=== PATIENT | female | born 1975 | race Caucasian/White ===

== ENCOUNTER → 2016-02-21 | Day surgery (SDC) | payer BC ==
[2016-02-13 10:05] VITALS: Ht 157.5 cm; Wt 54.5 kg
[~2016-02-21] VITALS: Ht 157.5 cm; Wt 54.5 kg
[~2016-02-21] MED LIST: ATROPINE SULFATE 0.1 MG/ML 5ML SYR IV PRN; BUPR-79 PO; DEXAMETHASONE SOD INJ 4 MG/ML VIAL ONE; EpHEDrine SULFATE INJ 50 MG/ML AMP IV PRN; FENTANYL CITRATE INJ 50 MCG/1 ML 2 ML VIAL IV PRN; FENTANYL CITRATE INJ 50 MCG/1 ML 2 ML VIAL ONE; LACTATED RINGER'S 1000ML 1,000 ML IV SCH; LIDOCAINE HCL 2% 2 ML VIAL (20MG/ML) ONE; MIDAZOLAM HCL 1 MG/ML 2ML VIAL ONE; MULT-506 PO; ONDANSETRON INJ 2 MG/ML 2 ML VIAL IV PRN; ONDANSETRON INJ 2 MG/ML 2 ML VIAL ONE; OXYC-57 PO; OXYCODONE/ACETAMINOPHEN 5-325 TAB PO PRN; PROMETHAZINE HCL INJ 12.5 MG in SODIUM CHLORIDE 0.9% 50ML 50 ML IV PRN; PROMETHAZINE HCL INJ 25 MG in SODIUM CHLORIDE 0.9% 50ML 50 ML IV PRN; PROPOFOL IV EMULSION 10 MG/ML 20 ML VIAL IV ONE; SODIUM CHLORIDE 0.9% 1000ML 1,000 ML IV SCH
--- NOTE | 2016-02-21 09:27 | History & Physical Bridge - [place] ---
H&P Re-Evaluation Bridge Note: I have examined the patient, reviewed the History & Physical and in the interval since the performance of the History & Physical I have noted the following changes of clinical significance: No changes noted
--- NOTE | 2016-02-21 10:18 | [facility] Post Operative Brief Note ---
Immediate Operative Summary Operative Date Feb 21, 2016. Pre-Operative Diagnosis Menorrhagia, Pelvic Pain Post-Operative Diagnosis Same Procedure(s) Performed Dilatation And Curettage, Hysteroscopy, Endometrial Ablation with Novasure Surgeon Dr. Lock Cattle Manager Surgeon(s) None Estimated Blood Loss 20 mL Findings narrow Cx Specimens A. Endometrial Curettings Drains None Anesthesia General Complication(s) None Disposition Recovery Room / PACU
--- NOTE | 2016-02-21 10:19 | Discharge Instructions ---
Discharge Instructions Admission Reason for Admission: Menorrhagia, Pelvic Pain Discharge Discharge Diagnosis / Problem: menorrhagia Discharge Goals Goal(s): Routine recovery after surgery Activity Recommendations Activity Limitations: per Instructions/Follow-up section . Instructions / Follow-Up Instructions / Follow-Up ACTIVITY RECOMMENDATIONS: * Avoid tampons, douching, hot tubs, pools, and intercourse until bleeding has stopped. * May shower as usual. * No strenuous activity for 24-48 hours. After 24-48 hours, you may do anything you feel like doing (driving and sports are okay). SPECIAL CARE INSTRUCTIONS: Special Diet: * Mild nausea may occur in the immediate post-operative period. * Take clear liquids such as tea, cola or bouillon until all nausea has subsided; you may then resume your normal diet. Special Care: * Light bleeding and vaginal spotting can last from a few days to 3-4 weeks. Call your doctor if bleeding becomes heavier than the heaviest part of your period. * Check your temperature twice a day for one week. If it goes above 100.4 degrees Fahrenheit (38.0 Celsius), notify your doctor. * Call your doctor's office for an appointment for 6 weeks after your surgery. FOLLOW-UP VISIT: Call your doctor's office for an appointment for 6 weeks after your surgery. Current Hospital Diet Patient's current hospital diet: Discharge Diet Recommended Diet: Regular Diet Procedures Procedures Performed: Dilatation And Curettage, Hysteroscopy, Endometrial Ablation with Novasure Pending Studies Studies pending at discharge: no Medical Emergencies . Who to Call and When: Medical Emergencies: If at any time you feel your situation is an emergency, please call 911 immediately. . Non-Emergent Contact Non-Emergency issues call your: Primary Care Provider . . "Provider Documentation" section prepared by Angel Lock. VTE Core Measure Inpt VTE Proph given/why not?: Treatment not indicated
[2016-02-21 11:00] VITALS: TEMP 36.3
--- NOTE | 2016-02-21 11:15 | Anesthesia Progress Nt - [facility] ---
Anesthesia Post Op Note Date & Time Feb 21, 2016 at 11:15 Vital Signs Pain Intensity: 2 Vital Signs Past 12 Hours Date Time Temp Pulse Resp B/P Pulse Ox O2 Delivery O2 Flow Rate FiO2 02/21/16 11:00 36.3 68 16 109/73 98 Room Air 02/21/16 10:55 59 13 02/21/16 10:55 60 13 100 02/21/16 10:54 60 11 100 02/21/16 10:54 59 11 02/21/16 10:53 97/69 02/21/16 10:53 36.6 60 12 102/69 100 Room Air 02/21/16 10:49 63 17 02/21/16 10:49 62 17 100 02/21/16 10:48 102/69 02/21/16 10:44 70 14 100 02/21/16 10:44 67 14 02/21/16 10:43 103/70 02/21/16 10:39 68 18 100 02/21/16 10:39 68 18 02/21/16 10:38 101/66 02/21/16 10:34 71 18 02/21/16 10:34 71 18 100 02/21/16 10:33 65 15 100 02/21/16 10:33 64 15 02/21/16 10:28 62 12 104/64 100 02/21/16 10:28 36.2 70 18 98/68 100 Diffusion Mask 6 02/21/16 10:28 65 12 02/21/16 08:59 36.5 68 16 110/76 100 Room Air Notes Mental Status: alert / awake / arousable, participated in evaluation Pt Amnestic to Procedure: Yes Nausea / Vomiting: adequately controlled Pain: adequately controlled Airway Patency, RR, SpO2: stable & adequate BP & HR: stable & adequate Hydration State: stable & adequate Anesthetic Complications: no major complications apparent
[2016-02-21 11:25] VITALS: BP 107/74; PULSE 73; O2SAT 98
--- NOTE | 2016-02-21 12:01 | OPERATIVE REPORT ---
DATE OF OPERATION: 02/21/2016 PREOPERATIVE DIAGNOSIS: Menorrhagia. POSTOPERATIVE DIAGNOSIS: Menorrhagia. PROCEDURES: D\T\C, hysteroscopy, endometrial ablation with NovaSure. SURGEON: Dr. Lock. SHANK RANDER: None. ESTIMATED BLOOD LOSS: 20 mL. FINDINGS: Narrow cervix. SPECIMENS: Endometrial curettings. DRAINS: None. ANESTHETIC: General. COMPLICATIONS: None. DISPOSITION: Recovery room. Belle was given a general anesthetic, prepped and draped in dorsal lithotomy position in [facility] cane stirrups. Bladder drained. Uterus examined and found to be axial in position, nonenlarged. Weighted speculum placed in the vagina. Single tooth tenaculum on anterior lip of the cervix. Cervix then dilated. Initially I had some resistance on dilatation but what we found was the external os was open enough to allow a 5 mm scope and I was able to visualize that the os actually took a sharp turn anteriorly. Using careful dilatation, starting at #13 dilator and progressing to a #29 dilator, I was able to dilate the cervix. Again, the direction of the uterus actually had a significant anteflexion at this stage but I was able to visualize the cavity. Both tubal ostia were visualized. There was no sign of perforation and no abnormal pathology seen, lining somewhat thickened. D\T\C performed and sharp curettage to remove tissue. Measurements were performed. The actual fundal length was 4 cm and the width 4.2 cm. We performed the cavity integrity test with carbon dioxide and then this was passed successfully in the first attempt and then after this, we performed the ablation, ablating for a total of 2 minutes time. At the end of the procedure, the device was removed and at this stage, we then reinspected with a hysteroscope. Cavity was well ablated. There was no sign of perforation. Pictures taken for documentation. Sponge and instrument counts correct. The patient sent to recovery room in stable condition. I attest to the content of the Intraoperative Record and any orders documented therein. Any exceptio ns are noted below.
== END | disposition home or self-care (01) ==
LOC: X.SURG 08:46
PROVIDERS: ATTEND Obstetrics & Gynecology
DX: N92.0 Excessive and frequent menstruation with regular cycle (principal); R10.2 Pelvic and perineal pain; F41.9 Anxiety disorder, unspecified; F32.9 Major depressive disorder, single episode, unspecified; K21.9 Gastro-esophageal reflux disease without esophagitis

== ENCOUNTER → 2016-05-14 | Outpatient (CLI) | payer BC, OTHER ==
[~2016-05-14] MED LIST changes: -ATROPINE SULFATE 0.1 MG/ML 5ML SYR IV PRN; -DEXAMETHASONE SOD INJ 4 MG/ML VIAL ONE; -EpHEDrine SULFATE INJ 50 MG/ML AMP IV PRN; -FENTANYL CITRATE INJ 50 MCG/1 ML 2 ML VIAL IV PRN; -FENTANYL CITRATE INJ 50 MCG/1 ML 2 ML VIAL ONE; -LACTATED RINGER'S 1000ML 1,000 ML IV SCH; -LIDOCAINE HCL 2% 2 ML VIAL (20MG/ML) ONE; -MIDAZOLAM HCL 1 MG/ML 2ML VIAL ONE; -ONDANSETRON INJ 2 MG/ML 2 ML VIAL IV PRN; -ONDANSETRON INJ 2 MG/ML 2 ML VIAL ONE; -OXYCODONE/ACETAMINOPHEN 5-325 TAB PO PRN; -PROMETHAZINE HCL INJ 12.5 MG in SODIUM CHLORIDE 0.9% 50ML 50 ML IV PRN; -PROMETHAZINE HCL INJ 25 MG in SODIUM CHLORIDE 0.9% 50ML 50 ML IV PRN; -PROPOFOL IV EMULSION 10 MG/ML 20 ML VIAL IV ONE; -SODIUM CHLORIDE 0.9% 1000ML 1,000 ML IV SCH
== END | disposition home or self-care (01) ==
LOC: C.LABMFLN 07:55
PROVIDERS: ATTEND Family Medicine
DX: R31.9 Hematuria, unspecified (principal)

== ENCOUNTER 2017-09-11 09:17 | Observation (INO) | payer BC ==
[2017-09-02 14:29] VITALS: BMI 24.0
[~2017-09-11] VITALS: Ht 154.9 cm; Wt 59.1 kg
[2017-09-11] VITALS (8 sets, daily range): BP systolic 100–132; BP diastolic 64–84; PULSE 67–81; TEMP 36.6–37.1; O2SAT 99–100; Ht 154.9 cm; Wt 59.1 kg
[~2017-09-11 09:17] MED LIST changes: +ATROPINE SULFATE 0.1 MG/ML 5ML SYR IV PRN; +CEFAZOLIN 2000MG IV PUSH 15 ML IV SCH; +EpHEDrine SULFATE INJ 50 MG/ML AMP IV PRN; +FENTANYL CITRATE INJ 50 MCG/1 ML 2 ML VIAL IV PRN; +FLUMAZENIL 0.1 MG/1 ML 10 ML VIAL IV PRN; +HYDROmorphone INJ 2 MG/ML SYR/VIAL IV PRN; +LABETALOL HCL IV 5 MG/ML 20ML IV PRN; +LACTATED RINGER'S 1000ML 1,000 ML IV SCH; +MEPERIDINE HCL 25 MG/ML CARP IV PRN; +NALOXONE HCL 0.4 MG/1 ML VIAL/CARP IV PRN; +ONDANSETRON INJ 2 MG/ML 2 ML VIAL IV PRN; -OXYC-57 PO; +PHENYLEPHRINE 100MCG/ML 5ML SYR IV PRN
[2017-09-11] MEDS ORDERED: METHYLENE BLUE 0.5% 10 ML VIAL ONE (12:02)
[2017-09-11] MEDS ORDERED: BUPIVACAINE 0.5 % 5 MG/1 ML PF 10ML VIAL ONE (12:02)
[2017-09-11] MEDS ORDERED: FENTANYL CITRATE INJ 50 MCG/1 ML 2 ML VIAL ONE (12:04)
[2017-09-11] MEDS ORDERED: MIDAZOLAM HCL 1 MG/ML 2ML VIAL ONE (12:04)
[2017-09-11] MEDS ORDERED: LIDOCAINE 2% JELLY 5 ML TUBE ONE (12:08)
[2017-09-11] MEDS ORDERED: ACETAMINOPHEN 1000 MG/100 ML IV IV ONE (12:08)
[2017-09-11] MEDS ORDERED: DiphenhydrAMINE HCL 50 MG/ML VIAL ONE (12:56)
[2017-09-11] MEDS ORDERED: DEXAMETHASONE SOD INJ 4 MG/ML VIAL ONE (12:56)
[2017-09-11] MEDS ORDERED: ROCURONIUM BROMIDE 10 MG/ML 5 ML VIAL ONE (12:56)
[2017-09-11] MEDS ORDERED: ONDANSETRON INJ 2 MG/ML 2 ML VIAL ONE (12:56)
[2017-09-11] MEDS ORDERED: LIDOCAINE HCL 2% 2 ML VIAL (20MG/ML) ONE (12:56)
[2017-09-11] MEDS ORDERED: GLYCOPYRROLATE INJ 0.2 MG/ML VIAL ONE (12:56)
[2017-09-11] MEDS ORDERED: NEOSTIGMINE METHYLSULFATE 5 MG/5 ML SYR ONE (12:56)
[2017-09-11] MEDS ORDERED: PROPOFOL IV EMULSION 10 MG/ML 20 ML VIAL ONE (12:57)
[2017-09-11] MEDS ORDERED: TISSEEL FIBRIN SEALANT 4ML TOP ONE (13:59)
[2017-09-11] MEDS ORDERED: LACTATED RINGER'S 1000ML 1,000 ML IV SCH (14:16)
--- NOTE | 2017-09-11 14:19 | [facility] Post Operative Brief Note ---
Immediate Operative Summary Operative Date Sep 11, 2017. Pre-Operative Diagnosis Menorrhagia Pelvic pain Post-Operative Diagnosis same Procedure(s) Performed TLH, bilat salpingectomy, cystoscopy Surgeon Dr. Shane Lock Casting Supervisor Surgeon(s) None Estimated Blood Loss 10ml Findings Consistent with Post-Op Diagnosis Specimens A: Cervix, Uterus, and Fallopian tubes Drains Ellis Anesthesia Type General Complication(s) none Disposition Accompanied Pt To Recover: no Disposition: Recovery Room / PACU
[2017-09-11] MEDS ORDERED: OXYC-57 PO (14:20)
--- NOTE | 2017-09-11 14:20 | Discharge Instructions ---
Discharge Instructions Date of Service Sep 11, 2017. Admission Reason for Admission: Menorrhagia, Pelvic Pain Discharge Discharge Diagnosis / Problem: pelvic pain Discharge Goals Goal(s): Routine recovery after surgery Activity Recommendations Activity Limitations: per Instructions/Follow-up section . Instructions / Follow-Up Instructions / Follow-Up POST OPERATIVE: BOWEL FUNCTION/MEDICATIONS: 1. Constipation pain and discomfort are the most common complaints 5-7 days after surgery. Points 2-6 address the things that can help. 2. Chewing gum can help stimulate the gut and help improve digestion and motility. 3. Milk of Magnesia 1-2 times per day until return of bowel function. 4. Colace is a stool softener that helps. Taking this 2-3 times per day until bowel function returns to normal is highly recommended. 5. Dulcolax is a laxative that may be used if several days have passed without a bowel movement. Alternatively Miralax may be used daily instead. 6. Drink plenty of fluids as this will also reduce constipation. 7. Narcotic pain medications will be prescribed by your physician. They are safe to use and we encourage you to use them. If you are not allergic, ibuprofen will also be prescribed. Many patients will be able to transition off of the narcotic medications to ibuprofen by postoperative day 3. ACTIVITY RECOMMENDATIONS: 1. Get plenty of rest and listen to your body. If you are tired, take a nap. 2. You may shower, but do not take a tub bath until you see your doctor at the 2 week post operative visit. 3. Absolutely NO intercourse and nothing in the vagina until you are examined by your doctor at the 6 week visit. At that visit it will be determined when such activities can be resumed. This can range from 6-12 weeks after your surgery depending on healing time. 4. The main physical activity in the first week should be walking. By the second week you can slowly increase activity. There are no limits on walking up and down stairs. 5. Do not lift more than 5-10 lbs for 4 weeks. Remember the "one-handed rule", i.e. if you can lift something with only one hand it's likely okay. 6. Minimize bag tester like vacuuming and exercising for 4 weeks. "Overdoing it" can lead to incisions not healing, pain and vaginal bleeding , so again, listen to your body. 7. Driving can be resumed when you feel able. Do not drive within 24 hours of taking a narcotic medication. EXPECTATIONS: 1. Vaginal spotting, bleeding and discharge are common after surgery. There may even be an odor to the discharge which is often related to sutures used in the vagina. If you experience heavy vaginal bleeding, call the office number day or night [phone]. 2. Bladder discomfort is common after surgery from the catheter. This usually resolves in 1-2 weeks. 3. By the end of the 3rd or 4th week you should be feeling much better. It may take up to 6 weeks for your energy levels to return to normal. 4. Narcotic medications have side effects such as: dizziness, headache, nausea and/or vomiting. If you suspect your pain medication is causing problems, call our office and we may be able to prescribe an alternate medication. 5. The skin incisions are often covered with a liquid bandage. This will gradually peel off over time. CALL THE OFFICE IF YOU HAVE ANY OF THE FOLLOWIN. Temperature of 101 degrees or higher. 2. Severe abdominal or pelvic pain not relieved by pain medication. 3. Persistent nausea or vomiting. 4. Increased pain with urination or difficulty urinating. 5. Bright red bleeding that soaks more than 1 pad per hour. CONTACT PHONE NUMBERS: Main Office: [phone] Surgical Nurse: [phone] extension [phone] Avoid all tobacco products. If you need help to stop smoking, call [place]'s FREE QUITLINE at . This is a free call. Current Hospital Diet Patient's current hospital diet: Discharge Diet Recommended Diet: Regular Diet Procedures Procedures Performed: TLH, bilat salpingectomy, cystoscopy Pending Studies Studies pending at discharge: no Medical Emergencies . Who to Call and When: Medical Emergencies: If at any time you feel your situation is an emergency, please call 911 immediately. . Non-Emergent Contact Non-Emergency issues call your: Safety Teacher . . "Provider Documentation" section prepared by Angel Lock. .
[2017-09-11] MEDS ORDERED: OXYCODONE/ACETAMINOPHEN 5-325 TAB PO PRN ×2 (14:30)
[2017-09-11] MEDS ORDERED: ZOLPIDEM TARTRATE 5 MG TAB PO PRN (14:30)
[2017-09-11] MEDS ORDERED: PROMETHAZINE HCL INJ 25 MG in SODIUM CHLORIDE 0.9% 50ML 50 ML IV PRN (14:30)
[2017-09-11] MEDS ORDERED: SIMETHICONE 80 MG CHEW PO PRN (14:30)
[2017-09-11] MEDS ORDERED: PROMETHAZINE HCL INJ 12.5 MG in SODIUM CHLORIDE 0.9% 50ML 50 ML IV PRN (14:30)
[2017-09-11] MEDS ORDERED: MEPERIDINE HCL 50 MG/ML CARP IV PRN ×2 (14:30)
[2017-09-11] MEDS ORDERED: ONDANSETRON INJ 2 MG/ML 2 ML VIAL IV PRN (14:30)
[2017-09-11] MEDS ORDERED: BISACODYL 10 MG SUPP PR PRN (14:30)
[2017-09-11] MEDS ORDERED: ACETAMINOPHEN 325 MG TAB PO PRN (14:30)
[2017-09-11] MEDS ORDERED: MAGNESIUM HYDROXIDE SUSP 30 ML UDC PO PRN (14:30)
--- NOTE | 2017-09-11 15:08 | OPERATIVE REPORT ---
DATE OF OPERATION: 09/11/2017 PREOPERATIVE DIAGNOSES: Menorrhagia, pelvic pain. POSTOPERATIVE DIAGNOSES: Menorrhagia, pelvic pain. PROCEDURES: Total laparoscopic hysterectomy, bilateral salpingectomy, cystoscopy da Karen robotically assisted. SURGEON: Dr. Lock. FOREST FIRE EQUIPMENT OPERATOR: None. ESTIMATED BLOOD LOSS: 10 mL. COMPLICATIONS: None. SPECIMENS: Uterus, cervix, fallopian tubes. DRAINS: Ellis catheter. ANESTHETIC: General. DISPOSITION: Recovery room. DESCRIPTION OF PROCEDURE: The patient was given a general anesthetic, prepped and draped in dorsal lithotomy position in [facility]. IV antibiotics given. Ellis catheter placed in her bladder. A VCare sewn into her cervix for manipulation of the uterus in the usual fashion. A subumbilical incision made with scalpel, dissecting with Adilene technique down through subcutaneous fat to the fascia, splitting the rectus muscles and entering the peritoneal cavity without difficulty. Blunt-tipped Adilene trocar then placed, balloon inflated to stabilize the port. CO2 gas used to insufflate the abdomen. FINDINGS: Upper abdomen normal, no sign of visceral organ injury. Some blood in the pelvis, but patient likely menstruating and retrograde flow. Ovaries appeared normal. No significant lesions or adhesions. Two robotic ports placed on left and right side in the usual fashion and a left upper quadrant 11 mm bladeless port placed as well. Procedure was begun by removing both fallopian tubes, first on the left then on the right side. I then identified the course of the ureter on the left side, made a note of this and then coagulated the blood supply distal to the ovary with the bipolar [place] cut this with monopolar erna. We then did same process with the round ligament, skeletonizing the uterine vessels and also performing a bladder flap dissection as well. Uterine vessels were then coagulated with the bipolar [place]. We were well away from the ureter at this time. These vessels were then cut with the monopolar erna. Same process was repeated on the right side. Once the vessels were fully controlled and the bladder flap fully dissected away, I was able to make a colpotomy and then complete this. Uterus was then pulled into the vagina to maintain pneumoperitoneum. IV methylene blue was given. Instruments exchanged, arm #1 became the oswald needle electric pile driver operator, arm #2 became the cobra grasper. 12-inch, 2-0 90-day V-Loc suture passed with accessory port. Cuff closed from left to right, taking at least 1 cm full thickness bites of vaginal mucosa. Suture cut so there was no tail and needle removed from the accessory port. Uterus had been removed from the vagina at this stage. After generous irrigation and suction, Tisseel 4 mL was applied to the pedicles. Cystoscopy was performed by removing the Ellis catheter visualized a normal bladder. Good strong jets of bluish dye from both left and right ureter openings. No stitches or defects seen. Cystoscope removed and a new Ellis catheter placed. At this stage, we then regowned and gloved and removed the instruments, undocked the robot, removed the ports, allowed gas to escape. Incisions injected with 0.5% Marcaine. Fascia closed carefully with the umbilical incision and also left upper quadrant incision. 4-0 Monocryl closures. Dermabond applied. Sponge and instrument counts correct and urine clear at the end of procedure. I attest to the content of the Intraoperative Record and any orders documented therein. Any exception s are noted below.
--- NOTE | 2017-09-11 15:42 | Anesthesiology Progress Note ---
Anesthesia Post Op Note Date & Time Sep 11, 2017 at 15:40 Vital Signs Pain Intensity: 0 Vital Signs Past 12 Hours Date Time Temp Pulse Resp B/P (MAP) Pulse Ox O2 Delivery O2 Flow Rate FiO2 09/11/17 15:15 36.7 82 24 116/75 100 Nasal Cannula 2 09/11/17 15:05 73 20 108/69 100 Nasal Cannula 2 09/11/17 14:55 80 19 121/65 100 Nasal Cannula 2 09/11/17 14:45 76 16 128/64 100 Oxymask 10 09/11/17 14:35 73 15 105/65 100 Oxymask 10 09/11/17 14:28 36.7 76 17 107/74 100 Oxymask 10 09/11/17 09:49 36.6 69 16 102/73 (83) 100 Room Air Notes Mental Status: alert / awake / arousable, participated in evaluation Pt Amnestic to Procedure: Yes Nausea / Vomiting: adequately controlled Pain: adequately controlled Airway Patency, RR, SpO2: stable & adequate BP & HR: stable & adequate Hydration State: stable & adequate Anesthetic Complications: no major complications apparent Patient was noted to have inverted T waves on monitor in the PACU. Unsure if this was patient's baseline. Decided to do a 12 lead ECG in the PACU to confirm this finding. Did an extensive chart review to see if the patient had any previous ECG's but she stated the last one might have been around 1996. She is 42 with no chronic medical issues so ECG was not done preoperatively. She was awake, conversant and denied any SOB, Chest pain/pressure, dizziness, or lightheadedness. I curbsided disease control inspector [facility] kassy can tender and he stated no further workup was required given patient's lack of symptoms and excellent functional status. She is to be transferred to the floor and is currently in stable condition with stable vital signs.
[2017-09-11 20:17] LABS: HEMATOCRIT 40.7 % (37-47); HEMOGLOBIN 13.9 g/dL (12.0-16.0)
[2017-09-11] MEDS ORDERED: DOCUSATE SODIUM 100 MG CAP PO SCH (21:00)
[2017-09-11] MEDS ORDERED: IV FLUIDS COMPLETED PRN (21:45)
--- NOTE | 2017-09-13 10:54 | DISCHARGE SUMMARY ---
HOSPITAL COURSE: Belle had a total laparoscopic hysterectomy on September 11. This was uncomplicated. Operative note is in the chart. The patient was discharged home just a few hours after her hysterectomy. Subjectively, the patient was doing well, ambulating, tolerating an oral diet. Had no extremity pain and no bleeding. The patient was able to void and tolerate oral pain medication. PHYSICAL EXAMINATION: VITAL SIGNS: Stable. She is afebrile. IMPRESSION AND PLAN: The patient discharged home after a few hours after laparoscopic hysterectomy. Discharge instructions were reviewed and the patient was given pain medications.
== END 2017-09-11 20:40 | disposition home or self-care (01) ==
LOC: C.ACU 09:17 → C.MS4N 09:30 → ENRESERV 15:02
PROVIDERS: ADMIT Obstetrics & Gynecology; ATTEND Obstetrics & Gynecology
DX: N92.0 Excessive and frequent menstruation with regular cycle (principal); R10.2 Pelvic and perineal pain; F41.9 Anxiety disorder, unspecified; F32.9 Major depressive disorder, single episode, unspecified; K21.9 Gastro-esophageal reflux disease without esophagitis; Z88.1 Allergy status to other antibiotic agents; Z88.6 Allergy status to analgesic agent; Z88.2 Allergy status to sulfonamides
CPT/HCPCS: 58571; S2900

== ENCOUNTER 2018-07-05 07:15 | Observation (INO) ==
--- NOTE | 2018-06-24 10:40 | Anesthesiology Consultation ---
Date of Service June 24, 2018 Assessment & Plan (1) Encounter for pre-operative examination: Chart Review Chart Review: Acceptable Risk for Surgery and Patient NOT seen in Pre Admission Testing History Surgery Operation Date: 07/05/18 10:10 Proposed Procedures p Laparoscopic Appendectomy, Possible Open Appendectomy - Lars Short MD, FACS Height/Weight Height: 5 ft 2 in Weight: 56.699 kg Allergies Allergy/AdvReac Type Severity Reaction Status Date / Time ibuprofen Allergy Intermediate Rash Verified 06/24/18 09:08 latex Allergy Intermediate hives Verified 06/24/18 09:08 Sulfa (Sulfonamide Allergy Unknown Unknown Verified 06/24/18 09:08 Antibiotics) amoxicillin AdvReac Mild Diarrhea Verified 06/24/18 09:08 clavulanic acid AdvReac Mild Diarrhea Verified 06/24/18 09:08 Medications Home Medications Medication Instructions Recorded Confirmed Last Taken bupropion HCl 150 mg PO BID 06/24/18 06/24/18 Unknown multivitamin 1 tab PO QAM 06/24/18 06/24/18 Unknown Past Medical History Medical History Anxiety Depression Past Family History Family History Grandfather (Maternal) Family history of esophageal cancer Past Surgical History Surgical History History of anesthesia reaction Bradycardia History of colonoscopy History of endometrial ablation History of esophagogastroduodenoscopy (EGD) History of hysterectomy History of tooth extraction Social History Smoking Status: Never smoker Do You Dip or Chew Tobacco: No Hx Alcohol Use: Yes alcohol intake frequency: holidays/special occasions only Hx Substance Use: No substance use type: does not use Testing Laboratory Results 05/30/18 WBC 6.8 H/H 12.6/38.0 PLATELETS 184
--- NOTE | 2018-06-24 12:25 | Anesthesiology Consultation ---
Date of Service June 24, 2018 Assessment & Plan (1) Encounter for pre-operative examination: Chart Review Chart Review: Acceptable Risk for Surgery and Patient NOT seen in Pre Admission Testing Consults Requested none History Surgery Operation Date: 07/05/18 10:10 Proposed Procedures p Laparoscopic Appendectomy, Possible Open Appendectomy - Lars Short MD, FACS Height/Weight Height: 5 ft 2 in Weight: 56.699 kg Allergies Allergy/AdvReac Type Severity Reaction Status Date / Time ibuprofen Allergy Intermediate Rash Verified 06/24/18 09:08 latex Allergy Intermediate hives Verified 06/24/18 09:08 Sulfa (Sulfonamide Allergy Unknown Unknown Verified 06/24/18 09:08 Antibiotics) amoxicillin AdvReac Mild Diarrhea Verified 06/24/18 09:08 clavulanic acid AdvReac Mild Diarrhea Verified 06/24/18 09:08 Medications Home Medications Medication Instructions Recorded Confirmed Last Taken bupropion HCl 150 mg PO BID 06/24/18 06/24/18 Unknown multivitamin 1 tab PO QAM 06/24/18 06/24/18 Unknown Past Medical History Medical History Anxiety Depression Past Family History Family History Grandfather (Maternal) Family history of esophageal cancer Past Surgical History Surgical History History of anesthesia reaction Bradycardia History of colonoscopy History of endometrial ablation History of esophagogastroduodenoscopy (EGD) History of hysterectomy History of tooth extraction Social History Smoking Status: Never smoker Do You Dip or Chew Tobacco: No Hx Alcohol Use: Yes alcohol intake frequency: holidays/special occasions only Hx Substance Use: No substance use type: does not use Testing Electrocardiogram Date: 09/11/17 Findings: + NSR @ (76) T wave abnormality, consider inferiolateral ischemia. No previous ECG's available. Laboratory Results 05/30/2018: WBC 6.8, hgb 12.6, hct 38, plt 184
[~2018-07-05 07:15] MED LIST changes: -ATROPINE SULFATE 0.1 MG/ML 5ML SYR IV PRN; -BUPR-79 PO; -CEFAZOLIN 2000MG IV PUSH 15 ML IV SCH; -EpHEDrine SULFATE INJ 50 MG/ML AMP IV PRN; -FENTANYL CITRATE INJ 50 MCG/1 ML 2 ML VIAL IV PRN; -FLUMAZENIL 0.1 MG/1 ML 10 ML VIAL IV PRN; -HYDROmorphone INJ 2 MG/ML SYR/VIAL IV PRN; -LABETALOL HCL IV 5 MG/ML 20ML IV PRN; -LACTATED RINGER'S 1000ML 1,000 ML IV SCH; +LR 15ML/HR IV SCH; -MEPERIDINE HCL 25 MG/ML CARP IV PRN; -MULT-506 PO; -NALOXONE HCL 0.4 MG/1 ML VIAL/CARP IV PRN; -ONDANSETRON INJ 2 MG/ML 2 ML VIAL IV PRN; -PHENYLEPHRINE 100MCG/ML 5ML SYR IV PRN; +cefOXitin 2,000 MG in DEXTROSE 5% 50 ML IV SCH
[2018-07-05] MEDS ORDERED: ONDANSETRON INJ 2 MG/ML 2 ML VIAL ONE (07:17)
[2018-07-05] MEDS ORDERED: fentaNYL citrate 100 MCG/2 ML VIAL ONE (07:17)
[2018-07-05] MEDS ORDERED: PROPOFOL IV EMULSION 10 MG/ML 20 ML VIAL IV ONE (07:17)
[2018-07-05] MEDS ORDERED: ROCURONIUM BROMIDE 10 MG/ML 5 ML VIAL ONE (07:17)
[2018-07-05] MEDS ORDERED: MIDAZOLAM HCL 1 MG/ML 2ML VIAL ONE (07:17)
[2018-07-05] MEDS ORDERED: LIDOCAINE HCL 2% 2 ML VIAL/AMP(20MG/ML) INFIL ONE (07:17)
[2018-07-05] MEDS ORDERED: BUPIVACAINE 0.5 % 5 MG/1 ML MPF 30ML VIAL ONE (08:00)
--- NOTE | 2018-07-05 08:00 | History & Physical Bridge Note ---
Date of Service July 05, 2018 History & Physical Bridge Note I have examined the patient, reviewed the History & Physical and in the interval since the performance of the History & Physical I have noted the following changes of clinical significance: no changes noted
[2018-07-05] MEDS ORDERED: ONDANSETRON INJ 2 MG/ML 2 ML VIAL IV PRN ×2 (08:08→10:43)
[2018-07-05] MEDS ORDERED: ATROPINE SULFATE 0.1 MG/ML 10ML SYR IV PRN (08:08)
[2018-07-05] MEDS ORDERED: HYDROmorphone INJ 1 MG/ML SYRINGE IV PRN (08:08)
[2018-07-05] MEDS ORDERED: DEXAMETHASONE SOD INJ 4 MG/ML VIAL ONE (08:39)
[2018-07-05] MEDS ORDERED: ACETAMINOPHEN 1,000 MG/100 ML VIAL IV ONE (08:54)
--- NOTE | 2018-07-05 08:54 | Operative Report ---
Post Operative Report Pre & Post Diagnosis Operation Date: 07/05/18 08:30 Pre-Op Diagnosis: Appendicitis Post-Op Diagnosis: Appendicitis Procedure Operation Date: 07/05/18 08:30 Actual Procedures p Laparoscopic Appendectomy(Not Applicable) - Lars Short MD, FACS Surgeon Lars Short MD, FACS Cane Splicer Curry Hairston Estimated Blood Loss 5 Findings Consistent with Post-Op Diagnosis Specimens appendix Description of Procedure see dictation I attest to the content of the Intraoperative Record and any orders documented therein. Any exceptions are noted below.
--- NOTE | 2018-07-05 09:42 | Anesthesiology Progress Note ---
Date of Service July 05, 2018 Anesthesia Post Procedure Vital Signs Vital Signs: Temp Pulse Pulse Resp BP BP Pulse Ox 07/05/18 09:35 59 L 18 120/71 100 07/05/18 09:25 57 L 18 108/73 100 07/05/18 09:09 36.8 C 61 16 127/76 100 07/05/18 07:52 36.7 C 77 18 111/65 100 Pain Intensity Abdomen: Pain Intensity: 0 Transfer of Care Handoff Completed per policy Notes Mental Status: alert / awake / arousable Patient Amnestic to Procedure: Yes Nausea / Vomiting: adequately controlled Pain: adequately controlled Airway Patency, RR, SpO2: stable & adequate BP & HR: stable & adequate Hydration State: stable & adequate Anesthetic Complications: no major complications apparent
--- NOTE | 2018-07-05 10:07 | Operative Report ---
DATE OF OPERATION: 07/05/2018 NAME OF OPERATION: Laparoscopic appendectomy. PREOPERATIVE DIAGNOSIS: Prior history of appendicitis. POSTOPERATIVE DIAGNOSIS: Prior history of appendicitis with adhesions. STAFF SURGEON: Lars Short MD. CAMERA PERSON: Burke Hairston PA-C ANESTHESIA: General. DESCRIPTION OF PROCEDURE: The patient was brought in the operating room and placed on the operating table in supine position. Her abdomen was prepped and draped in the usual fashion. Ellis catheter was placed to be taken out at the end of the case. 0.5% plain Marcaine was used to anesthetize all incisions. Incision was made above the umbilicus, carrying dissection down to the fascia, placing a Veress needle producing pneumoperitoneum, and placing a 5 mm port. A 5 mm scope was used. A second 5 mm port placed suprapubically. The cecum was reflected. The appendix was visualized. A 12 mm port was placed in the left lower quadrant. At this point, the base of the appendix was transected using an Endo-FLORENTINO stapler, 45 brown load and then the mesoappendix transected using a second firing of the 45 brown load Endo-FLORENTINO. At this point, the site was irrigated. Hemostasis was maintained. The appendix was placed in an Endobag. The bag was removed through the left lower quadrant site. All ports were removed. The 12 mm site closed by reapproximating the fascia using 0 Vicryl suture. Skin reapproximated using subcuticular 4-0 Monocryl with Dermabond at the umbilicus and suprapubic and Steri-Strips, left lower quadrant. My medical office receptionist assistant helped with removal of the appendix and closure of the wounds. I attest to the content of the Intraoperative Record and any orders documented therein. Any exception s are noted below.
[2018-07-05] MEDS ORDERED: LACTATED RINGER'S 1,000 ML IV SCH (10:43)
[2018-07-05] MEDS ORDERED: MoRPHine SULFATE 4 MG/ML 1 ML CARP\\VIAL IV PRN (10:43)
[2018-07-05] MEDS ORDERED: PROMETHAZINE HCL 12.5 MG in SODIUM CHLORIDE 0.9% 50 ML IV PRN (10:43)
[2018-07-05] MEDS ORDERED: PROMETHAZINE HCL 25 MG in SODIUM CHLORIDE 0.9% 50 ML IV PRN (10:43)
[2018-07-05] MEDS ORDERED: ACETAMINOPHEN 325 MG TAB PO PRN (10:43)
[2018-07-05] MEDS ORDERED: MoRPHine SULFATE 2 MG/ML CARP IV PRN (10:43)
[2018-07-05] MEDS ORDERED: HYDROCODONE/ACETAMOPHEN 5/325MG TAB PO PRN ×2 (10:43)
[2018-07-05] MEDS: BuPROPion SR 150 MG TABCR PO SCH ×2 (11:40→21:19)
[2018-07-06] MEDS: BuPROPion SR 150 MG TABCR PO SCH (08:06)
--- NOTE | 2018-07-06 08:15 | Anesthesiology Progress Note ---
Date of Service July 06, 2018 Anesthesia Post Procedure Vital Signs Vital Signs: Temp Pulse Pulse Pulse Resp BP BP 07/06/18 06:59 36.6 C 64 20 112/75 07/06/18 03:22 36.8 C 67 16 90/60 L 07/05/18 23:10 36.9 C 76 16 93/59 L 07/05/18 19:10 36.5 C 70 16 120/81 07/05/18 13:20 36.9 C 80 15 124/82 07/05/18 12:26 36.6 C 64 17 100/67 07/05/18 11:22 36.6 C 62 16 107/73 07/05/18 10:25 36.7 C 68 14 111/74 07/05/18 10:05 36.8 C 64 17 119/75 07/05/18 09:55 36.8 C 61 20 110/73 07/05/18 09:45 36.8 C 64 17 107/75 07/05/18 09:35 59 L 18 120/71 07/05/18 09:25 57 L 18 108/73 07/05/18 09:09 36.8 C 61 16 127/76 Pulse Ox 07/06/18 06:59 100 07/06/18 03:22 98 07/05/18 23:10 97 07/05/18 19:10 99 07/05/18 13:20 98 07/05/18 12:26 98 07/05/18 11:22 97 07/05/18 10:25 100 07/05/18 10:05 100 07/05/18 09:55 100 07/05/18 09:45 100 07/05/18 09:35 100 07/05/18 09:25 100 07/05/18 09:09 100 Pain Intensity Abdomen: Pain Intensity: 0 Notes Mental Status: alert / awake / arousable Patient Amnestic to Procedure: Yes Nausea / Vomiting: adequately controlled Pain: adequately controlled Airway Patency, RR, SpO2: stable & adequate BP & HR: stable & adequate Hydration State: stable & adequate Anesthetic Complications: no major complications apparent
--- NOTE | 2018-07-06 11:04 | Discharge Summary ---
PRINCIPAL DIAGNOSIS: Appendicitis. PROCEDURES: The patient underwent laparoscopic appendectomy. HISTORY OF PRESENT ILLNESS: The patient is a 43-year-old female who had appendicitis approximately 6 weeks prior to this treated with antibiotics at [facility] and now was brought in for interval appendectomy. She underwent elective appendectomy on 07/05/2018 which she tolerated very well, has done well overnight and is felt stable for discharge home today. We will follow her in the surgical clinic within 1-2 weeks.
== END 2018-07-06 10:28 | disposition home or self-care (01) ==
LOC: ASU 07:15 → 3W 07:15